=== PATIENT | female | born 1985 | race African-American/Black ===

== ENCOUNTER 2016-12-28 11:18 | Emergency (ER) | payer OTHER ==
[2016-12-28 11:31] VITALS: BP 120/71; PULSE 69; TEMP 97.9; BMI 29.8
[2016-12-28] MEDS ORDERED: IBUPROFEN 600 MG TABLET (FP) PO ONE ×2 (11:57→12:01)
--- NOTE | 2016-12-28 13:45 | PDOC ---
History of Present Illness - General Stated Complaint: RIGHT ANKLE INJURY Time Seen by Provider: 12/28/16 11:34 History Source: Patient Exam Limitations: No Limitations - History of Present Illness Initial Comments: 12/28/16 13:45 CHIEF COMPLAINT: Ankle pain HISTORY OF PRESENT ILLNESS: This is an otherwise healthy 31 year old female who presents by EMS for evaluation after twisting her right ankle. She has not been able to bear weight. REVIEW OF SYSTEMS: GENERAL/CONSTITUTIONAL: No fever or chills. No weakness. No weight change. MUSCULOSKELETAL: See HPI. SKIN: No rash or easy bruising. NEUROLOGIC: No loss of sensation. HEMATOLOGIC/LYMPHATIC: No anemia, easy bleeding, or history of blood clots. ALLERGIC/IMMUNOLOGIC: No hives or skin allergy. No latex allergy. PHYSICAL EXAM: GENERAL: The patient is awake, alert, and fully oriented, in no acute distress. EXTREMITIES: 2+ DP/PT pulses. Edema and tenderness at lateral malleolus. NEUROLOGICAL: Normal speech. CN II-XII grossly intact. Two-point discrimination intact. PSYCH: Normal mood, normal affect. SKIN: Warm, dry, normal turgor, no rashes or lesions noted. Past History - Past Medical History Allergies/Adverse Reactions: Allergies Allergy/AdvReac Type Severity Reaction Status Date / Time No Known Allergies Allergy Verified 03/11/16 11:08 Home Medications: Ambulatory Orders Ibuprofen [Motrin -] 600 mg PO QID #30 tablet 12/28/16 - Surgical History Abdominal Surgery: Yes (CLOSED FALLOPIAN TUBE) - Reproductive History Cervical CA: No Dysfunctional Uterine Bleeding: No Ectopic : No Endometrial CA: No Polycystic Ovaries: No Tubal Ligation: No - Psycho/Social/Smoking Cessation Hx Anxiety: No Suicidal Ideation: No Smoking History: Never smoked Hx Alcohol Use: No Drug/Substance Use Hx: No Substance Use Type: None *Physical Exam - Vital Signs Last Vital Signs Temp Pulse Resp BP Pulse Ox 97.9 F 69 16 120/71 100 12/28/16 11:20 12/28/16 11:20 12/28/16 11:20 12/28/16 11:20 12/28/16 11:20 ED Treatment Course - RADIOLOGY Radiology Studies Ordered: Category Date Time Status ANKLE & FOOT-RIGHT* [RAD] Stat Radiology 12/28/16 11:57 Taken - Medications Given in the ED: ED Medications Discontinued Medications Generic Name Dose Route Start Last Admin Trade Name Cynthia PRN Reason Stop Dose Admin Ibuprofen 600 mg 12/28/16 11:57 12/28/16 12:02 Motrin - PO 12/28/16 11:58 600 mg ONCE ONE Administration Medical Decision Making - Medical Decision Making 02/25/17 12:12 A/P: 31 year old female with ankle injury. -Xray: mild soft tissue swelling at lateral aspect; no fracture -Brace applied, crutches given -Ice, NSAIDS, ortho followup if needed *DC/Admit/Observation/Transfer Diagnosis at time of Disposition: Ankle sprain Qualifiers: Encounter type: initial encounter Laterality: right - Discharge Dispostion Disposition: HOME Condition at time of disposition: Improved Admit: No - Prescriptions Prescriptions: Ibuprofen [Motrin -] 600 mg PO QID #30 tablet - Patient Instructions Printed Discharge Instructions: DI for Ankle Sprain Additional Instructions: -Rest with your foot elevated above the level of your heart -Apply ice to the ankle for 15 minutes at a time 5 times a day -Take ibuprofen as prescribed for pain and swelling -Follow up with orthopedics (referral enclosed) if symptoms persist -Return here for any concerning symptoms - Post Discharge Activity Work/School Note: Back to Work
== END 2016-12-28 14:38 | disposition home or self-care (01) ==
LOC: JERFT 11:18
DX: S93.401A Sprain of unspecified ligament of right ankle, initial encounter (principal); X58.XXXA Exposure to other specified factors, initial encounter; Y93.9 Activity, unspecified; Y92.9 Unspecified place or not applicable
CPT/HCPCS: 73610-TC-RT; 73630-TC-RT; 99281-25

== ENCOUNTER 2017-04-01 20:18 | Emergency (ER) | payer OTHER ==
--- NOTE | 2017-04-01 20:38 | PDOC ---
History of Present Illness - General Chief Complaint: Pain, Acute Stated Complaint: ABDOMINAL PAIN Time Seen by Provider: 04/01/17 20:26 History Source: Patient Exam Limitations: No Limitations - History of Present Illness Travel History: No Initial Comments: 04/01/17 20:46 32-year-old F without any past medical history presents to the emergency department complaining of diffuse abdominal pain. Pain is described as 9/10 frida nonradiating constant discomfort with n/v x2/non bilious/non bloody. There are no alleviating or exacerbating factors. Patient denies fever, chills, chest pain, shortness of breath, flank pains, urinary symptoms: Frequency/urgency/hesitancy, hematuria. LMP: 3 weeks ago. Patient keeps stating it feels like I'm having contractions but I'm not . Timing/Duration: reports: constant Quality: reports: mild Abdominal Pain Onset Location: reports: generalized abdomen Pain Radiation: reports: no radiation Past History - Past Medical History Allergies/Adverse Reactions: Allergies Allergy/AdvReac Type Severity Reaction Status Date / Time No Known Allergies Allergy Verified 04/01/17 20:34 Home Medications: Ambulatory Orders Ibuprofen [Motrin -] 600 mg PO QID #30 tablet 12/28/16 Nitrofurantoin Monohyd/M-Cryst [Macrobid -] 100 mg PO BID #14 capsule 04/02/17 - Surgical History Abdominal Surgery: Yes (CLOSED FALLOPIAN TUBE) - Reproductive History Cervical CA: No Dysfunctional Uterine Bleeding: No Ectopic : No Endometrial CA: No Polycystic Ovaries: No Tubal Ligation: No - Psycho/Social/Smoking Cessation Hx Anxiety: No Suicidal Ideation: No Smoking History: Never smoked Have you smoked in the past 12 months: No Information on smoking cessation initiated: No Hx Alcohol Use: No Drug/Substance Use Hx: No Substance Use Type: None Review of Systems - Review of Systems Able to Perform ROS?: Yes Comments:: 04/01/17 20:49 CONSTITUTIONAL: Absent: fever, chills, diaphoresis, generalized weakness, malaise, loss of appetite HEENT: Absent: rhinorrhea, nasal congestion, throat pain, throat swelling, difficulty swallowing, mouth swelling, ear pain, eye pain, visual Changes CARDIOVASCULAR: Absent: chest pain, loss of consciousness, palpitations, irregular heart rate, peripheral edema RESPIRATORY: Absent: cough, shortness of breath, dyspnea with exertion, orthopnea, wheezing, stridor, hemoptysis GASTROINTESTINAL: +abd pain, +n/v Absent: abdominal distension, diarrhea, constipation, melena, hematochezia GENITOURINARY: Absent: dysuria, frequency, urgency, hesitancy, hematuria, flank pain, genital pain MUSCULOSKELETAL: Absent: myalgia, arthralgia, joint swelling SKIN: Absent: rash, itching, pallor HEMATOLOGIC/IMMUNOLOGIC: Absent: easy bleeding, easy bruising, lymphadenopathy, frequent infections ENDOCRINE: Absent: unexplained weight gain, unexplained weight loss, heat intolerance, cold intolerance NEUROLOGIC: Absent: headache, focal weakness or paresthesias, dizziness, unsteady gait, seizure, mental status changes, bladder or bowel incontinence PSYCHIATRIC: Absent: anxiety, depression, suicidal or homicidal ideation, hallucinations. Is the patient limited Palestinian proficient: No *Physical Exam - Vital Signs Last Vital Signs Temp Pulse Resp BP Pulse Ox 98.9 F 68 20 103/67 100 04/01/17 20:34 04/01/17 20:34 04/01/17 20:34 04/01/17 20:34 04/01/17 20:34 - Physical Exam Comments: 04/01/17 20:49 GENERAL: Well developed, well nourished. Awake and alert. No acute distress. HEENT: Normocephalic, atraumatic. PERRLA, EOMI. No conjunctival pallor. Sclera are non- icteric. Moist mucous membranes. Oropharynx is clear. NECK: Supple. Full ROM. No JVD. Carotid pulses 2+ and symmetric, without bruits. No thyromegaly. No lymphadenopathy. CARDIOVASCULAR: Regular rate and rhythm. No murmurs, rubs, or gallops. Distal pulses are 2+ and symmetric. PULMONARY: No evidence of respiratory distress. Lungs clear to auscultation bilaterally. No wheezing, rales or rhonchi. ABDOMINAL: +DIFFUSE ABD PAIN Soft. Non-distended. No rebound or guarding. No organomegaly. Normoactive bowel sounds. MUSCULOSKELETAL Normal range of motion at all joints. No bony deformities or tenderness. No CVA tenderness. EXTREMITIES: No cyanosis. No clubbing. No edema. No calf tenderness. SKIN: Warm and dry. Normal capillary refill. No rashes. No jaundice. NEUROLOGICAL: Alert, awake, appropriate. Cranial nerves 2-12 intact. No deficits to light touch and temperature in face, upper extremities and lower extremities. No motor deficits in the in face, upper extremities and lower extremities. Normoreflexic in the upper and lower extremities. Normal speech. Toes are down- going bilaterally. Gait is normal without ataxia. PSYCHIATRIC: Cooperative. Good eye contact. Appropriate mood and affect. ED Treatment Course - LABORATORY CBC & Chemistry Diagram: 04/01/17 20:30 04/01/17 20:30 - RADIOLOGY Radiograph Interpretation: 04/02/17 04:26 FINDINGS: Right upper quadrant ultrasound:The liver is normal, without mass or biliary duct dilation. Pericholecystic fluid is noted without wall thickening stones or sludge. No information was provided regarding the presence or absence of a sonographic Melton's sign. The CBD is not dilated and measures6 millimeters in diameter. Right kidney measures 9.6centimeters in length and is unremarkable. The visualized aorta and IVC are normal. Pancreas is partially obscured, but appears normal. Abdominal duplex: The main portal vein demonstrates normal hepatopedal flow. IMPRESSION: Pericholecystic fluid without definite secondary signs of cholecystitis. Please note that is unclear if there was a` sonographic Melton sign. Progress Note - Progress Note Progress Note: FINDINGS: Lung bases are clear. The visualized cardiac chambers are normal size and configuration. Pericholecystic edema is noted which may indicate cholecystitis, although the gallbladder is not significantly distended. Mild biliary duct dilation is noted. There is focal fatty infiltration of the liver next to the falciform ligament. Normal pancreas, spleen, adrenal glands and kidneys. The stomach and abdominal small and large bowel are normal. There is no aortic aneurysm. There is no significant retroperitoneal lymphadenopathy. The pelvic small and large bowel are normal. The appendix is normal. The uterus and adnexal structures are normal. Urinary bladder is unremarkable. There is trace pelvic free fluid. No discrete pelvic lymphadenopathy is identified. IMPRESSION: Possible cholecystitis may be further evaluated with ultrasound. FINDINGS: Right upper quadrant ultrasound:The liver is normal, without mass or biliary duct dilation. Pericholecystic fluid is noted without wall thickening stones or sludge. No information was provided regarding the presence or absence of a sonographic Melton's sign. The CBD is not dilated and measures6 millimeters in diameter. Right kidney measures 9.6centimeters in length and is unremarkable. The visualized aorta and IVC are normal. Pancreas is partially obscured, but appears normal. Abdominal duplex: The main portal vein demonstrates normal hepatopedal flow. IMPRESSION: Pericholecystic fluid without definite secondary signs of cholecystitis. Please note that is unclear if there was a` sonographic Melton sign. 0335hrs: Pt advised to be admitted for surgical consult. Pt adamantly refuses to stay. She states she needs to go to work. Pt advised to return to the ER for severe/persistent/worsening symptoms. *DC/Admit/Observation/Transfer Diagnosis at time of Disposition: Cholecystitis Urinary tract infection Qualifiers: Urinary tract infection type: acute cystitis Hematuria presence: without hematuria Qualified Code(s): N30.00 - Acute cystitis without hematuria - Discharge Dispostion Disposition: HOME Condition at time of disposition: Stable Admit: No - Prescriptions Prescriptions: Nitrofurantoin Monohyd/M-Cryst [Macrobid -] 100 mg PO BID #14 capsule - Referrals Referrals: Maddie Woods MD [Primary Care Provider] - Jose Manuel Lam MD [Staff Physician] - Fer Vann MD [Staff Physician] - - Patient Instructions Printed Discharge Instructions: DI for Cholecystitis, Urinary Tract Infection Additional Instructions: Follow up with the Surgeon on your discharge Follow up with Urologist Return to the ER for severe/persistent/worsening symptoms You were strongly advised to be admitted to the hospital for your stomach pains due to your gallbladder that you adamantly refused to stay. As discussed, return to the emergency department if the pain does not subside or worsen. It is important that you follow up with the general surgeon listed on your discharge form.
[2017-04-01] MEDS ORDERED: SODIUM CHLORIDE 1,000 ML IV STA (20:45)
[2017-04-01 21:16] LABS: BASOPHIL 0.2 % (0-2.0); EOSINOPHIL 0.3 % (0-4.5); MCHC 32.6 g/dl (32.0-36.0); MEAN CELL VOLUME 85.9 fl (80-96); MEAN PLT VOLUME 8.5 fl (7.5-11.1); NEUTROPHILS 95.6 % (42.8-82.8); PLATELET COUNT 161 K/MM3 (134-434); WHITE BLOOD COUNT 6.1 K/mm3 (4.0-10.0)
[2017-04-01 21:17] VITALS: BP 103/67; PULSE 68; TEMP 98.9; BMI 26.7
[2017-04-01 21:32] LABS: URINE APPEARANCE SLCLOUDY; URINE BILIRUBIN NEGATIVE (NEGATIVE); URINE BLOOD 1+ (NEGATIVE); URINE COLOR YELLOW; URINE GLUCOSE (UA) NEGATIVE (NEGATIVE); URINE KETONE TRACE (NEGATIVE); URINE LEUK ESTERASE 2+ (NEGATIVE); URINE NITRITE NEGATIVE (NEGATIVE); URINE PROTEIN 1+ (NEGATIVE); URINE UROBILINOGEN 4.0 E.U/dl mg/dL (0.2-1.0)
[2017-04-01 21:36] LABS: URINE MUCUS MANY; URINE RBC 5 /hpf (0-3); URINE WBC 47 /hpf (3-5)
[2017-04-01 21:47] LABS: ALBUMIN 3.8 g/dl (3.4-5.0); AMYLASE 60 U/L (25-115); ANION GAP 5 (8-16); BILIRUBIN,TOTAL 0.7 mg/dL (0.2-1.0); CALCIUM 8.7 mg/dL (8.5-10.1); CO2 28 mmol/L (21-32); CREATININE 0.8 mg/dL (0.55-1.02); GLUCOSE,RANDOM 105 mg/dL (74-106); SGPT/ALT 211 U/L (12-78); TOT PROT 6.8 g/dl (6.4-8.2)
[2017-04-01 21:48] LABS: ALK PHOS 105 U/L (45-117)
[2017-04-01 21:52] LABS: SGOT/AST 412 U/L (15-37)
[2017-04-01] MEDS ORDERED: morphine CARPU-JECT 2 MG/1 ML DISP.SYRIN IVPUSH ONE (22:59)
[2017-04-01] MEDS ORDERED: morphine CARPU-JECT 2 MG/1 ML DISP.SYRIN ONE (23:29)
[2017-04-02] MEDS ORDERED: LORAZEPAM CARPU-JECT 2 MG/ML DISP.SYRIN IVPUSH ONE
[2017-04-02] MEDS ORDERED: LORAZEPAM CARPU-JECT 2 MG/ML DISP.SYRIN ONE (00:01)
[2017-04-02] MEDS ORDERED: ONDANSETRON 4 MG/2 ML VIAL IVPB ONE (02:22)
[2017-04-02] MEDS ORDERED: ONDANSETRON 4 MG/2 ML VIAL ONE (02:26)
== END 2017-04-02 04:45 | disposition left against medical advice (07) ==
LOC: JER 20:18
PROC: 3E0337Z Introduction of Electrolytic and Water Balance Substance into Peripheral Vein, Percutaneous Approach (ICD-10-PCS; principal; 2017-04-01)
PROC: 3E033NZ Introduction of Analgesics, Hypnotics, Sedatives into Peripheral Vein, Percutaneous Approach (ICD-10-PCS; 2017-04-01)
PROC: 3E033NZ Introduction of Analgesics, Hypnotics, Sedatives into Peripheral Vein, Percutaneous Approach (ICD-10-PCS; 2017-04-01)
PROC: 3E033GC Introduction of Other Therapeutic Substance into Peripheral Vein, Percutaneous Approach (ICD-10-PCS; 2017-04-01)
DX: K81.9 Cholecystitis, unspecified (principal); N30.00 Acute cystitis without hematuria
CPT/HCPCS: 36415; 74177-TC; 76705-TC; 80053; 81003; 81015; 82150; 83690; 84703; 85025; 96361; 96374; 96375; 99284-25

== ENCOUNTER 2017-04-04 18:20 | Inpatient (IN) | payer OTHER ==
[2017-04-04 18:35] VITALS: BMI 27.4
[2017-04-04] MEDS ORDERED: ASPIRIN 81 MG CHEWABLE TABLETS ONE (18:44)
[2017-04-04] MEDS ORDERED: ASPIRIN 81 MG CHEWABLE TABLETS PO ONE (18:45)
[2017-04-04] MEDS ORDERED: SODIUM CHLORIDE 1,000 ML IV STA (18:45)
[2017-04-04] MEDS ORDERED: morphine CARPU-JECT 4 MG/1 ML DISP.SYRIN IVPUSH ONE ×2 (18:45→20:11)
[2017-04-04] MEDS ORDERED: morphine CARPU-JECT 4 MG/1 ML DISP.SYRIN ONE ×2 (18:59→20:22)
[2017-04-04 19:06] LABS: BASOPHIL 2.1 % (0-2.0); EOSINOPHIL 1.8 % (0-4.5); MCHC 32.3 g/dl (32.0-36.0); MEAN CELL VOLUME 86.7 fl (80-96); NEUTROPHILS 51.3 % (42.8-82.8); PLATELET COUNT 170 K/MM3 (134-434); RDW 13.4 % (11.6-15.6); WHITE BLOOD COUNT 5.6 K/mm3 (4.0-10.0)
[2017-04-04 19:20] LABS: INR 1.1 (0.82-1.09); PROTHROMBIN TIME (PATIENT) 12.1 SEC (9.98-11.88)
[2017-04-04 19:23] LABS: ACTIVATED PTT 32.9 SECONDS (26.9-34.4)
[2017-04-04 19:30] LABS: CREATININE 0.7 mg/dL (0.55-1.02); GLUCOSE,RANDOM 92 mg/dL (74-106)
[2017-04-04 19:31] LABS: ALBUMIN 3.7 g/dl (3.4-5.0); ALK PHOS 125 U/L (45-117); ANION GAP 7 (8-16); BILIRUBIN,TOTAL 0.2 mg/dL (0.2-1.0); CALCIUM 9.4 mg/dL (8.5-10.1); CO2 26 mmol/L (21-32); MAGNESIUM 1.9 mg/dL (1.8-2.4); SGOT/AST 42 U/L (15-37); SGPT/ALT 238 U/L (12-78); TOT PROT 7.1 g/dl (6.4-8.2); TROPONIN I < 0.02 ng/ml (0.00-0.05)
--- NOTE | 2017-04-04 20:15 | PDOC ---
History of Present Illness - General Chief Complaint: Pain Stated Complaint: ABDOMINAL APIN Time Seen by Provider: 04/04/17 18:44 History Source: Patient, EMS Exam Limitations: No Limitations - History of Present Illness Initial Comments: 32 yo female with h/o endometriosis with laparoscopy and tissue removal, BIBA for RUQ pain since Tuesday which is now radiating to her right shoulder and left chest. The pain feels like very bad gas and like a pressure, is not exacerbated or alleviated by any factors, and is 10/10 on arrival to the ED. She was seen here in the [facility] ED on Tuesday for RUQ pain and dizziness which caused her to collapse before coming to the ED that day. She had a CT scan of the abdomen, a US abdomen, and blood and urine studies. She was diagnosed with acute cholecystitis and UTI and prescribed Macrobid, which she has not been taking. She was advised to be admitted to the hospital for surgical consultation, but she refused admission. Tonight she notes nausea, vomiting, diarrhea, shortness of breath, and continued dizziness. She is on her menstrual period which has been normal. She denies painful urination or other urinary symptoms, vaginal discharge, fever, chills, or other symptoms. She has never had pain like this before. Her last PO intake was 4 pm today. Past History - Past Medical History Allergies/Adverse Reactions: Allergies Allergy/AdvReac Type Severity Reaction Status Date / Time No Known Allergies Allergy Verified 04/04/17 18:31 Home Medications: Ambulatory Orders Ibuprofen [Motrin -] 600 mg PO QID #30 tablet 12/28/16 Nitrofurantoin Monohyd/M-Cryst [Macrobid -] 100 mg PO BID #14 capsule 04/02/17 Other medical history: denies - Surgical History Abdominal Surgery: Yes (tubal ) - Reproductive History Cervical CA: No Dysfunctional Uterine Bleeding: No Ectopic : No Endometrial CA: No Polycystic Ovaries: No Tubal Ligation: No - Psycho/Social/Smoking Cessation Hx Anxiety: No Suicidal Ideation: No Smoking History: Never smoked Have you smoked in the past 12 months: No Information on smoking cessation initiated: No Hx Alcohol Use: No Drug/Substance Use Hx: No Substance Use Type: None Review of Systems - Review of Systems Able to Perform ROS?: Yes Constitutional: No: Chills, Fever, Unexplained wgt Loss HEENTM: No: Nose Congestion, Throat Pain Respiratory: Yes: Shortness of Breath. No: Cough Cardiac (ROS): Yes: Chest Pain, Lightheadedness. No: Syncope ABD/GI: Yes: Diarrhea, Nausea, Vomiting. No: Constipated : No: Burning, Dysuria Musculoskeletal: No: Back Pain, Neck Pain Integumentary: No: Bruising, Rash Neurological: Yes: Dizziness. No: Headache, Numbness, Tingling, Weakness Endocrine: No: Unexplained Weight Gain, Unexplained Weight Loss *Physical Exam - Vital Signs Last Vital Signs Temp Pulse Resp BP Pulse Ox 98.1 F 44 L 18 145/86 100 04/04/17 18:31 04/04/17 18:31 04/04/17 18:31 04/04/17 18:31 04/04/17 18:31 - Physical Exam General Appearance: Yes: Nourished, Moderate Distress HEENT: positive: EOMI, Normal Voice, Hearing Grossly Normal. negative: Pale Conjunctivae, Scleral Icterus (R), Scleral Icterus (L), Nasal Congestion Neck: positive: Trachea midline, Supple. negative: Tender, Rigid Respiratory/Chest: positive: Lungs Clear, Normal Breath Sounds. negative: Respiratory Distress, Crackles, Rhonchi, Stridor, Wheezing Cardiovascular: positive: Regular Rhythm, Bradycardia (to mid-30s at times). negative: Murmur Gastrointestinal/Abdominal: positive: Normal Bowel Sounds, Tender (RUQ moderate tenderness to palpation with positive Melton's sign, no peritoneal signs), Soft. negative: Organomegaly, Pulsatile Mass, Guarding Musculoskeletal: positive: Normal Inspection, CVA Tenderness (R). negative: Decreased Range of Motion, Vertebral Tenderness Extremity: positive: Normal Capillary Refill, Normal Inspection, Normal Range of Motion. negative: Tender, Cyanosis Integumentary: positive: Normal Color, Dry, Warm. negative: Erythema, Rash, Bruising Neurologic: positive: appraiser art II-XII NML intact, Fully Oriented, Alert, Normal Mood/ Affect, Normal Response, Motor Strength 5/5 Heart Score/ECG Review #1 ECG reviewed & interpreted by me at: 19:00 Sinus bradycardia, rate of 37, with new incomplete RBBB and t-wave inversions anteriorly. ED Treatment Course - LABORATORY CBC & Chemistry Diagram: 04/04/17 18:53 04/04/17 18:53 - ADDITIONAL ORDERS Additional order review: Laboratory Results 04/04/17 04/04/17 18:53 18:53 Sodium 142 Potassium 3.7 Chloride 109 H Carbon Dioxide 26 Anion Gap 7 L BUN 11 D Creatinine 0.7 Creat Clearance w eGFR > 60 Random Glucose 92 Calcium 9.4 Magnesium 1.9 Total Bilirubin 0.2 D AST 42 H D ALT 238 H Alkaline Phosphatase 125 H Creatine Kinase 146 Troponin I < 0.02 Total Protein 7.1 Albumin 3.7 Lipase 80 Serum , Qual Negative 04/04/17 18:53 RBC 4.27 MCV 86.7 MCHC 32.3 RDW 13.4 MPV 9.0 Neutrophils % 51.3 D Lymphocytes % 36.1 D Monocytes % 8.7 D Eosinophils % 1.8 D Basophils % 2.1 H D - RADIOLOGY Radiology Studies Ordered: Category Date Time Status CHEST X-RAY PORTABLE* [RAD] Stat Radiology 04/04/17 18:46 Taken ABDOMEN US -LIMITED [US] Stat Ultrasound 04/04/17 19:37 Ordered 04/04/17 22:53 CXR without consolidation or e/o pneumothorax, pneumoperitoneum, or acute cardiopulmonary processes - Medications Given in the ED: ED Medications Discontinued Medications Generic Name Dose Route Start Last Admin Trade Name Freq PRN Reason Stop Dose Admin Aspirin 162 mg 04/04/17 18:45 04/04/17 19:04 Asa - PO 04/04/17 18:46 162 mg ONCE ONE Administration Sodium Chloride 1,000 mls @ 1,000 mls/hr 04/04/17 18:45 04/04/17 19:04 Normal Saline - IV 04/04/17 19:44 1,000 mls/hr ASDIR STA Administration Morphine Sulfate 4 mg 04/04/17 18:45 04/04/17 19:04 Morphine Injection - IVPUSH 04/04/17 18:46 4 mg ONCE ONE Administration Medical Decision Making - Medical Decision Making 32 yo female with h/o endometriosis with laparoscopy last year who p/w RUQ and left chest pain. Found in sinus bradycardia rate of 37 with t-wave inversions anteriorly, incomplete RBBB, no prior EKG. Seen 3 days ago for RUQ pain and dx with cholecystitis via US and CT abdomen. Also had UTI on UA on Tuesday, not taking Macrobid as she was prescribed. Ddx includes acute cholecystitis, cholangitis, ACS, PNA, pneumothorax, ruptured ovarian cyst, dysmenorrhea. No leukocytosis today, AST has normalized since Tuesday, lipase is wnl. However ALT and Alkaline Phosphatase are elevated. US today shows pericholecystic fluid without biliary ductal dilatation. On the monitor, the patient remains with HR in the upper 30s/lower 40s. She remains hemodynamically stable. Dr. Tyson graciously admits the patient to Inpatient Telemetry. Amylase, blood culture, lactate, Zosyn are ordered. Consults ordered for GI, Surgery, ID, and Cardiology. *DC/Admit/Observation/Transfer Diagnosis at time of Disposition: Bradycardia on ECG, Acute cholecystitis - Discharge Dispostion Condition at time of disposition: Guarded Admit: Yes - Attestations Physician Attestion: 04/04/17 22:36 I, Dr. Keely Ny, attest that this document has been prepared under my direction and personally reviewed by me in its entirety. I further attest, that it accurately reflects all work, treatment, procedures and medical decision -making performed by me.
[2017-04-04] MEDS ORDERED: PIPERACILLIN/TAZOB 4.5 GM/100 ML PRE-DOCKED IVPB ONE (22:44)
[2017-04-04 23:34] LABS: URINE APPEARANCE CLEAR; URINE BILIRUBIN NEGATIVE (NEGATIVE); URINE BLOOD 3+ (NEGATIVE); URINE COLOR YELLOW; URINE GLUCOSE (UA) NEGATIVE (NEGATIVE); URINE KETONE NEGATIVE (NEGATIVE); URINE LEUK ESTERASE NEGATIVE (NEGATIVE); URINE NITRITE NEGATIVE (NEGATIVE); URINE UROBILINOGEN NEGATIVE mg/dL (0.2-1.0)
[2017-04-04 23:41] LABS: URINE PROTEIN 1+ (NEGATIVE)
[2017-04-04] MEDS ORDERED: PIPERACILLIN/TAZOB 4.5 GM 100 ML IVPB ONE (23:51)
[2017-04-05 00:19] LABS: URINE MUCUS MANY; URINE RBC 717 /hpf (0-3); URINE WBC 5 /hpf (3-5)
[2017-04-05] MEDS: SODIUM CHLORIDE 1,000 ML IV SCH (01:50)
[2017-04-05] MEDS: HYDROmorphone HCL CARPU-JECT 1 MG/1 ML DISP.SYRIN IVPB PRN ×2 (01:58→21:49)
--- NOTE | 2017-04-05 10:07 | CON.CARD ---
Consult Consult Specialty:: Cardiology Referred by:: Dr. Tyson Reason for Consultation:: Cardiac evaluation - History of Present Illness Chief Complaint: Syncope History of Present Illness: Patient is a 32 year old female with no underlying PMH who presents to [facility] after nausea, vomiting, diarrhea and a syncopal episode yesterday. She is post 5 months and apparently presented to ER on last Tuesday with right quadrant abdominal pain. Cholecystitis was suspected and work up was planned, however; she signed out AMA until she presented back to ER yesterday. She continued to have right upper quadrant pain in addition to the above GI complaints. She was bottle feeding her baby when she became dizzy and briefly passed out. She denies any prior episode of syncope. She denies shortness of breath or palpitations. She denies chest pain, but complains also of back pain. She denies paroxysmal nocturnal dyspnea or orthopnea. She denies fever or chills. She denies headache. ECG and monitor reveals marked sinus bradycardia in the 30's and states that her HR is always slow. Cardiology consultation was called for further evaluation. - History Source History Provided By: Patient, Medical Record Limitations to Obtaining History: No Limitations - Past Medical History Reproductive: Yes: Endometriosis ...LMP: 12/15/14 - Past Surgical History Additional Surgical History: Surgery for endometriosis - Alcohol/Substance Use Hx Alcohol Use: Yes (Social) History of Substance Use: reports: None - Smoking History Smoking history: Never smoked Have you smoked in the past 12 months: No Home Medications - Allergies Allergies/Adverse Reactions: Allergies Allergy/AdvReac Type Severity Reaction Status Date / Time No Known Allergies Allergy Verified 04/04/17 18:31 - Home Medications Home Medications: Ambulatory Orders Ibuprofen [Motrin -] 600 mg PO QID #30 tablet 12/28/16 Nitrofurantoin Monohyd/M-Cryst [Macrobid -] 100 mg PO BID #14 capsule 04/02/17 Review of Systems - Review of Systems Constitutional: denies: Chills, Fever Cardiovascular: denies: Chest Pain, Palpitations, Shortness of Breath Respiratory: denies: Cough, Hemoptysis, Orthopnea, PND, SOB, SOB on Exertion Gastrointestinal: reports: Abdominal Pain, Diarrhea, Nausea, Vomiting. denies: Melena, Rectal Bleeding Musculoskeletal: reports: Back Pain Neurological: denies: Dizziness, Headache, Seizure, Syncope Vital Signs: Vital Signs Temperature 97.8 F 04/05/17 06:00 Pulse Rate 38 L 04/05/17 06:00 Respiratory Rate 18 04/05/17 06:00 Blood Pressure 136/63 04/05/17 06:00 O2 Sat by Pulse Oximetry (%) 99 04/05/17 01:40 HENT: Yes: Atraumatic Neck: Yes: Supple Respiratory: Yes: CTA Bilaterally Gastrointestinal: Yes: Normal Bowel Sounds, Soft, Tenderness (Diffuse) Cardiovascular: Yes: Regular Rate and Rhythm, Bradycardia JVD: No Carotid Bruit: No PMI: Non-Displaced Heart Sounds: Yes: S1, S2 Edema: No Neurological: Yes: WNL - Other Data Labs, Other Data: INR, PTT INR 1.10 (0.82-1.09) 04/04/17 18:53 Laboratory Results - last 24 hr 04/04/17 04/04/17 04/04/17 18:53 18:53 18:53 WBC 5.6 RBC 4.27 Hgb 12.0 Hct 37.0 MCV 86.7 MCH 28.0 MCHC 32.3 RDW 13.4 Plt Count 170 MPV 9.0 Neutrophils % 51.3 D Lymphocytes % 36.1 D Monocytes % 8.7 D Eosinophils % 1.8 D Basophils % 2.1 H D INR 1.10 PTT (Actin FS) 32.9 Sodium Potassium Chloride Carbon Dioxide Anion Gap BUN Creatinine Creat Clearance w eGFR Random Glucose Calcium Magnesium Total Bilirubin AST ALT Alkaline Phosphatase Creatine Kinase Troponin I Total Protein Albumin Total Amylase Lipase Serum , Qual Negative Urine Color Yellow Urine Appearance Clear Urine pH 5.0 Ur Specific [place] >= 1.030 H Urine Protein 1+ H Urine Glucose (UA) Negative Urine Ketones Negative Urine Blood 3+ H Urine Nitrite Negative Urine Bilirubin Negative Urine Urobilinogen Negative Ur Leukocyte Esterase Negative Urine RBC 717 Urine WBC 5 Ur Epithelial Cells Rare Urine Mucus Many 04/04/17 04/04/17 18:53 22:40 WBC RBC Hgb Hct MCV MCH MCHC RDW Plt Count MPV Neutrophils % Lymphocytes % Monocytes % Eosinophils % Basophils % INR PTT (Actin FS) Sodium 142 Potassium 3.7 Chloride 109 H Carbon Dioxide 26 Anion Gap 7 L BUN 11 D Creatinine 0.7 Creat Clearance w eGFR > 60 Random Glucose 92 Calcium 9.4 Magnesium 1.9 Total Bilirubin 0.2 D AST 42 H D ALT 238 H Alkaline Phosphatase 125 H Creatine Kinase 146 Troponin I < 0.02 Total Protein 7.1 Albumin 3.7 Total Amylase 52 Lipase 80 Serum , Qual Urine Color Urine Appearance Urine pH Ur Specific [place] Urine Protein Urine Glucose (UA) Urine Ketones Urine Blood Urine Nitrite Urine Bilirubin Urine Urobilinogen Ur Leukocyte Esterase Urine RBC Urine WBC Ur Epithelial Cells Urine Mucus Marked sinus bradycardia otherwise no ST-T abnormality Echo: Pending Imaging - Results Chest X-ray: Report Reviewed (Unremarkable) X-ray: Report Reviewed (Abdominal US - Trace pericholecystic fluid and no clear signs of acute cholecystitis) EKG: Report Reviewed Problem List - Problems (1) Acute cholecystitis Code(s): K81.0 - ACUTE CHOLECYSTITIS (2) Bradycardia on ECG Code(s): R00.1 - BRADYCARDIA, UNSPECIFIED (3) Syncope Code(s): R55 - SYNCOPE AND COLLAPSE Qualifiers: Syncope type: unspecified Qualified Code(s): R55 - Syncope and collapse Assessment/Plan 1. Right upper quadrant pain with abnormal liver function suggests gallbladder disease rule out cholecystitis 2. Syncope, etiology to be determined, possible vagal event with vomiting and diarrhea, rule out cardiac etiology with slow HR, sinus node disease 3. Marked sinus bradycardia PLAN: 1. Continue monitor on telemetry 2. Transthoracic echocardiography to assess LV and valvular function (official result to follow) 3. Consider Holter monitor 4. Patient is not on any AV jennifer agent at this time and would avoid them 5. GI evaluation to follow. Further plans are to follow Freddie Jarrett MD
[2017-04-05] MEDS ORDERED: ALPRAZolam 0.25 MG TABLET PO ONE (11:00)
--- NOTE | 2017-04-05 14:01 | EKG ---
Test Reason : Blood Pressure : / mmHG Vent. Rate : 030 BPM Atrial Rate : 030 BPM P-R Int : 160 ms QRS Dur : 092 ms QT Int : 524 ms P-R-T Axes : 023 054 042 degrees QTc Int : 370 ms MARKED SINUS BRADYCARDIA RSR' IN V1-V2 NONSPECIFIC T WAVE ABNORMALITY ABNORMAL ECG WHEN COMPARED WITH ECG OF 04-APR-2017 18:33, CORRELATE CLINICALLY AND REPEAT INDICATED Confirmed by IMAN TEJADA MD ([id number]) on 04/05/2017 2:00:50 PM Referred By: Chiquita QUINN Confirmed By:IMAN TEJADA MD
[2017-04-05] MEDS ORDERED: ONDANSETRON 4 MG/2 ML VIAL ONE (15:23)
[2017-04-05] MEDS ORDERED: PANTOPRAZOLE SODIUM 40 MG/100 ML PRE-DOCKED IVPB SCH (15:30)
[2017-04-05] MEDS: MAG HYDROX/AL HYDROX/SIMETH 30 ML UNIT-DOSE CUP PO PRN ×2 (15:36→21:30)
[2017-04-05] MEDS: ONDANSETRON 4 MG/2 ML VIAL IVPB SCH ×2 (15:36→19:57)
[2017-04-05] MEDS: DEXTROSE 5%-NORMAL SALINE 1,000 ML IV SCH (15:36)
--- NOTE | 2017-04-05 16:05 | CONSULT ---
Consult Consult Specialty:: infectious diseases Reason for Consultation:: abd pain,uti,choleycystitis - History of Present Illness Chief Complaint: abd pain weakness History of Present Illness: 32 yo female with h/o endometriosis admitted for RUQ pain which started since Tuesday and radiating to her right shoulder and left chest. pressure, is not She was seen here in the [facility] ED on Tuesday for RUQ pain and dizziness which caused her to collapse before coming to the ED that day. She had a CT scan of the abdomen, a US abdomen, and blood and urine studies. She was diagnosed with acute cholecystitis and UTI and prescribed Macrobid, which she has not been taking. patient refused admission at that time and went home She did not improve and started having. es nausea, vomiting, diarrhea, shortness of breath, and continued dizziness. she also mentions that she is having her period and she thinks she is having her period - History Source History Provided By: Patient Limitations to Obtaining History: No Limitations - Past Medical History ...LMP: 12/15/14 - Past Surgical History Additional Surgical History: Surgery for endometriosis - Alcohol/Substance Use Hx Alcohol Use: Yes (Social) History of Substance Use: reports: None - Smoking History Smoking history: Never smoked Have you smoked in the past 12 months: No Home Medications - Allergies Allergies/Adverse Reactions: Allergies Allergy/AdvReac Type Severity Reaction Status Date / Time No Known Allergies Allergy Verified 04/04/17 18:31 - Home Medications Home Medications: Ambulatory Orders Ibuprofen [Motrin -] 600 mg PO QID #30 tablet 12/28/16 Nitrofurantoin Monohyd/M-Cryst [Macrobid -] 100 mg PO BID #14 capsule 04/02/17 Review of Systems - Review of Systems Constitutional: reports: No Symptoms Eyes: reports: No Symptoms HENT: reports: No Symptoms Neck: reports: No Symptoms Cardiovascular: reports: No Symptoms Respiratory: reports: No Symptoms Gastrointestinal: reports: Abdominal Pain, Nausea, Vomiting Genitourinary: reports: Urgency Musculoskeletal: reports: No Symptoms Integumentary: reports: No Symptoms Neurological: reports: No Symptoms Endocrine: reports: No Symptoms Hematology/Lymphatic: reports: No Symptoms Psychiatric: reports: No Symptoms Physical Exam Vital Signs: Vital Signs Temperature 98.7 F 04/05/17 14:00 Pulse Rate 40 L 04/05/17 14:00 Respiratory Rate 20 04/05/17 14:00 Blood Pressure 152/84 04/05/17 14:00 O2 Sat by Pulse Oximetry (%) 100 04/05/17 08:00 Constitutional: Yes: Well Nourished, No Distress, Calm Eyes: Yes: WNL, Conjunctiva Clear HENT: Yes: Atraumatic Neck: Yes: Supple, Trachea Midline Cardiovascular: Yes: Regular Rate and Rhythm Respiratory: Yes: Regular, CTA Bilaterally Gastrointestinal: Yes: Normal Bowel Sounds, Tenderness (ruq) Musculoskeletal: Yes: WNL Extremities: Yes: WNL Neurological: Yes: Alert, Oriented Psychiatric: Yes: Alert, Oriented Imaging - Results Chest X-ray: Report Reviewed, Image Reviewed Ultrasound: Report Reviewed, Image Reviewed Other: Image Reviewed Assessment/Plan patient with multiple medical problems suspicion of ac lefty patient just had a hida scan all the results are pending patien has pain in ruq but everything is bothering her ac choleycystitis abd pain nausea uti plan will start patient on abx continue monitoring rest as per primary
[2017-04-05] MEDS: PIPERACILLIN/TAZOB 3.375 GM 50 ML IVPB SCH (17:13)
--- NOTE | 2017-04-05 17:50 | HP ---
Admitting History and Physical - Primary Care Physician PCP: Amy Tyson - Admission History of Present Illness: - 32 year old female with no underlying PMH who presents to [facility] after nausea, vomiting, diarrhea and a syncopal episode yesterday. She is post 5 months and apparently presented to ER on last Tuesday with right quadrant abdominal pain, ua revealed mild infection, dc on po abx . Cholecystitis was suspected and work up was planned, however; she signed out AMA until she presented back to ER yesterday. She continued to have right upper quadrant pain in addition to the above GI complaints. She was bottle feeding her baby when she became dizzy and briefly passed out. She denies shortness of breath or palpitations. She denies chest pain.ECG and monitor reveals marked sinus bradycardia in the 30's and states that her heart rate is always low. currently she is feeling well and wants to go home - Past Medical History ...LMP: 12/15/14 - Smoking History Smoking history: Never smoked Have you smoked in the past 12 months: No - Alcohol/Substance Use Hx Alcohol Use: Yes (Social) History of Substance Use: reports: None Home Medications - Allergies Allergies/Adverse Reactions: Allergies Allergy/AdvReac Type Severity Reaction Status Date / Time No Known Allergies Allergy Verified 04/04/17 18:31 - Home Medications Home Medications: Ambulatory Orders Ibuprofen [Motrin -] 600 mg PO QID #30 tablet 12/28/16 Nitrofurantoin Monohyd/M-Cryst [Macrobid -] 100 mg PO BID #14 capsule 04/02/17 Physical Examination Vital Signs: Vital Signs Temperature 98.7 F 04/05/17 14:00 Pulse Rate 40 L 04/05/17 14:00 Respiratory Rate 20 04/05/17 14:00 Blood Pressure 152/84 04/05/17 14:00 O2 Sat by Pulse Oximetry (%) 100 04/05/17 08:00 Constitutional: Yes: Anxious HENT: Yes: Atraumatic Neck: Yes: Supple Cardiovascular: Yes: Regular Rate and Rhythm Respiratory: Yes: CTA Bilaterally Gastrointestinal: Yes: Normal Bowel Sounds Extremities: Yes: WNL Neurological: Yes: Alert, Oriented Problem List - Problems (1) Acute cholecystitis Assessment/Plan: gb scan ....no acute cholecystitis d/w dr villa she can eat Code(s): K81.0 - ACUTE CHOLECYSTITIS (2) Bradycardia on ECG Assessment/Plan: on holter d/w dr quick cardiology she can go home and follow up with him at his office Code(s): R00.1 - BRADYCARDIA, UNSPECIFIED Assessment/Plan Laboratory Tests 04/04/17 04/04/17 04/04/17 18:53 18:53 18:53 WBC 5.6 RBC 4.27 Hgb 12.0 Hct 37.0 MCV 86.7 MCH 28.0 MCHC 32.3 RDW 13.4 Plt Count 170 MPV 9.0 Neutrophils % 51.3 D Lymphocytes % 36.1 D Monocytes % 8.7 D Eosinophils % 1.8 D Basophils % 2.1 H D INR 1.10 PTT (Actin FS) 32.9 Sodium Potassium Chloride Carbon Dioxide Anion Gap BUN Creatinine Creat Clearance w eGFR Random Glucose Calcium Magnesium Total Bilirubin AST ALT Alkaline Phosphatase Creatine Kinase Troponin I Total Protein Albumin Total Amylase Lipase Serum , Qual Negative Urine Color Yellow Urine Appearance Clear Urine pH 5.0 Ur Specific [place] >= 1.030 H Urine Protein 1+ H Urine Glucose (UA) Negative Urine Ketones Negative Urine Blood 3+ H Urine Nitrite Negative Urine Bilirubin Negative Urine Urobilinogen Negative Ur Leukocyte Esterase Negative Urine RBC 717 Urine WBC 5 Ur Epithelial Cells Rare Urine Mucus Many 04/04/17 04/04/17 18:53 22:40 WBC RBC Hgb Hct MCV MCH MCHC RDW Plt Count MPV Neutrophils % Lymphocytes % Monocytes % Eosinophils % Basophils % INR PTT (Actin FS) Sodium 142 Potassium 3.7 Chloride 109 H Carbon Dioxide 26 Anion Gap 7 L BUN 11 D Creatinine 0.7 Creat Clearance w eGFR > 60 Random Glucose 92 Calcium 9.4 Magnesium 1.9 Total Bilirubin 0.2 D AST 42 H D ALT 238 H Alkaline Phosphatase 125 H Creatine Kinase 146 Troponin I < 0.02 Total Protein 7.1 Albumin 3.7 Total Amylase 52 Lipase 80 Serum , Qual Urine Color Urine Appearance Urine pH Ur Specific [place] Urine Protein Urine Glucose (UA) Urine Ketones Urine Blood Urine Nitrite Urine Bilirubin Urine Urobilinogen Ur Leukocyte Esterase Urine RBC Urine WBC Ur Epithelial Cells Urine Mucus Active Medications Generic Name Dose Route Start Last Admin Trade Name Freq PRN Reason Stop Dose Admin Al Hydroxide/Mg Hydroxide 30 ml 04/05/17 15:25 04/05/17 15:36 Mylanta Oral Suspension - PO 30 ml Q4H PRN Administration INDIGESTION Hydromorphone HCl 1 mg 04/05/17 01:07 04/05/17 01:58 Dilaudid Injection - IVPB 1 mg Q3H PRN Administration PAIN Sodium Chloride 1,000 mls @ 100 mls/hr 04/05/17 01:00 04/05/17 01:50 Normal Saline - IV 100 mls/hr ASDIR SIMON Administration Dextrose/Sodium Chloride 1,000 mls @ 150 mls/hr 04/05/17 15:30 04/05/17 15:36 D5-Ns - IV 04/07/17 22:09 150 mls/hr ASDIR SIMON Administration Piperacillin Sod/Tazobactam Sod 50 mls @ 100 mls/hr 04/05/17 18:00 04/05/17 17: 13 Zosyn 3.375gm Ivpb (Pre-Docked) IVPB 100 mls/hr Q8H-IV SIMON Administration Protocol Ondansetron HCl 4 mg 04/05/17 15:30 04/05/17 15:36 Zofran Injection IVPB 04/06/17 03:31 4 mg Q4H SIMON Administration Ondansetron HCl 4 mg 04/06/17 03:00 Zofran Injection IVPB Q4H PRN NAUSEA AND/OR VOMITING Pantoprazole Sodium 40 mg 04/05/17 15:30 04/05/17 15:35 Protonix 40mg Ivpb (Pre-Docked) IVPB 40 mg BID SIMON Administration
--- NOTE | 2017-04-05 19:16 | DS ---
Physical Examination Vital Signs: Vital Signs Temperature 98.7 F 04/05/17 14:00 Pulse Rate 40 L 04/05/17 14:00 Respiratory Rate 20 04/05/17 14:00 Blood Pressure 152/84 04/05/17 14:00 O2 Sat by Pulse Oximetry (%) 100 04/05/17 08:00 Discharge Summary Reason For Visit: UTI,BRADYCARDIA ON ECG Current Active Problems Acute cholecystitis (Acute) Bradycardia on ECG (Acute) Syncope (Acute) Condition: Guarded - Instructions Referrals: Freddie Quick MD [Staff Physician] - - Home Medications Comprehensive Discharge Medication List: Ambulatory Orders Ibuprofen [Motrin -] 600 mg PO QID #30 tablet 12/28/16 Nitrofurantoin Monohyd/M-Cryst [Macrobid -] 100 mg PO BID #14 capsule 04/02/17 ar home d/w cardiology fu dr quick 1 week
--- NOTE | 2017-04-05 19:34 | PN ---
Progress Note (short form) - Note Progress Note: surgery pt seen and exmained. full consult dictated. 32f with severe ruq pain and syncope Tuesday that returned to [facility] ER Tuesday with similar symptoms. u/s x 2 shows not gallstones but fluid around gb. Pt has known endometriosis and numerous ER visits for abd pain. HIDA and CCK HIDA requested by me showing normal gb function. Lfts mildly elevated Tuesday and today. Plan- GB is not source of symptoms. No indication for cholecystectomy. Should consider GI w/u.
--- NOTE | 2017-04-05 20:13 | CON.GI ---
Consult Consult Specialty:: gastroenterology Referred by:: Dr Tyson - History of Present Illness History of Present Illness: 32 y/o female has endometriosis, lower abdominal pain wa admitted to r/o cholecystitis. This evening she complains of abdominal bloating, diarrhea, diffuse abdominal pain. SHe was admitted in telemetry because of bradycardia. - Past Medical History ...LMP: 12/15/14 - Past Surgical History Additional Surgical History: Surgery for endometriosis - Alcohol/Substance Use Hx Alcohol Use: Yes (Social) History of Substance Use: reports: None - Smoking History Smoking history: Never smoked Have you smoked in the past 12 months: No Home Medications - Allergies Allergies/Adverse Reactions: Allergies Allergy/AdvReac Type Severity Reaction Status Date / Time No Known Allergies Allergy Verified 04/04/17 18:31 - Home Medications Home Medications: Ambulatory Orders Ibuprofen [Motrin -] 600 mg PO QID #30 tablet 12/28/16 Nitrofurantoin Monohyd/M-Cryst [Macrobid -] 100 mg PO BID #14 capsule 04/02/17 Physical Exam-GI Vital Signs: Vital Signs Temperature 98.7 F 04/05/17 14:00 Pulse Rate 40 L 04/05/17 14:00 Respiratory Rate 20 04/05/17 14:00 Blood Pressure 152/84 04/05/17 14:00 O2 Sat by Pulse Oximetry (%) 100 04/05/17 08:00 Constitutional: Yes: Well Nourished Eyes: Yes: Conjunctiva Clear HENT: Yes: Atraumatic Neck: Yes: Supple Cardiovascular: Yes: Regular Rate and Rhythm Respiratory: Yes: CTA Bilaterally Gastrointestinal Inspection: Yes: Distention ...Palpate: Yes: Soft. No: Firm/Rigid, Guarding, Hepatomegaly, Mass, Pulsatile Mass, Splenomegaly, Tenderness ...Percussion: Yes: Tympanitic Labs: INR, PTT INR 1.10 (0.82-1.09) 04/04/17 18:53 Problem List - Problems (1) GERD (gastroesophageal reflux disease) Assessment/Plan: R> Continue Protonix and Reglan urine toxicity Code(s): K21.9 - GASTRO-ESOPHAGEAL REFLUX DISEASE WITHOUT ESOPHAGITIS (2) IBS (irritable bowel syndrome) Assessment/Plan: suspect bacterial overgrowth R> low residue lactose free diet Flagyl 250mg tid made aware to ff-up for further w/u Code(s): K58.9 - IRRITABLE BOWEL SYNDROME WITHOUT DIARRHEA
[2017-04-05] MEDS ORDERED: PANTOPRAZOLE 40 MG TABLET (FP) PO SCH (20:15)
--- NOTE | 2017-04-05 20:33 | EKG ---
Test Reason : Blood Pressure : / mmHG Vent. Rate : 037 BPM Atrial Rate : 037 BPM P-R Int : 160 ms QRS Dur : 098 ms QT Int : 460 ms P-R-T Axes : 011 051 016 degrees QTc Int : 361 ms MARKED SINUS BRADYCARDIA ATRIAL ABNORMALITY RSR' V1-V2 ABNORMAL ECG NO PREVIOUS ECGS AVAILABLE REPEAT EKG IF CLINICALLY INDICATED Confirmed by IMAN TEJADA MD ([id number]) on 04/05/2017 8:33:10 PM Referred By: Confirmed By:IMAN TEJADA MD
[2017-04-05] MEDS: METOCLOPRAMIDE HCL 10 MG TABLET (FP) PO SCH (20:34)
[2017-04-05] MEDS: metroNIDAZOLE 250 MG TABLET PO SCH (21:31)
[2017-04-06] MEDS: DEXTROSE 5%-NORMAL SALINE 1,000 ML IV SCH (01:00)
[2017-04-06] MEDS: PIPERACILLIN/TAZOB 3.375 GM 50 ML IVPB SCH ×2 (01:01→09:19)
[2017-04-06] MEDS: SODIUM CHLORIDE 1,000 ML IV SCH (01:10)
[2017-04-06] MEDS ORDERED: ONDANSETRON 4 MG/2 ML VIAL IVPB PRN (03:00)
[2017-04-06] MEDS: HYDROmorphone HCL CARPU-JECT 1 MG/1 ML DISP.SYRIN IVPB PRN (04:02)
[2017-04-06] MEDS: ONDANSETRON 4 MG/2 ML VIAL IVPB SCH ×2 (04:27)
[2017-04-06] MEDS: METOCLOPRAMIDE HCL 10 MG TABLET (FP) PO SCH ×2 (06:27→10:27)
[2017-04-06] MEDS: metroNIDAZOLE 250 MG TABLET PO SCH (06:27)
[2017-04-06 07:55] VITALS: BP 145/66; PULSE 54; TEMP 98.1
--- NOTE | 2017-04-06 08:01 | CONS ---
DATE OF CONSULTATION: 04/05/2017 REASON FOR CONSULTATION: Rule out gallbladder disease, acute cholecystitis. This is a medical consultation at the request of Dr. Amy Tyson. This is done as an inpatient consultation. BRIEF HISTORY: This is a 32-year-old female with known endometriosis who has had a laparoscopy and tissue removal for that. She has also had numerous emergency room visits for abdominal pain including 6 at [facility]. She presented here on Tuesday with severe right upper quadrant abdominal pain and claiming that she passed out. She was noted to have an elevated AST of 412, ALT 211, and alkaline phosphatase of 105, and she was diagnosed with a urinary tract infection and given Macrobid and discharged. Ultrasound at that time showed no gallstones, and she had a small amount of fluid located around the gallbladder. The patient had a resumption of her symptoms yesterday and again came to [facility] Emergency Room. She had another ultrasound, which again showed no gallstones but did show a small amount of fluid around the gallbladder. She was admitted to the hospital for possible acute cholecystitis. At my request, she had a HIDA scan, which showed filling of the gallbladder in 1 hour, and she had a CCK HIDA, which showed a 44% ejection fraction confirming a normally functioning gallbladder. Her liver function tests were again elevated. Her AST was down to 42. Her ALT was approximately the same at 238, and her alkaline phosphatase was approximately the same at 125. She states that currently she has no nausea or vomiting but she did before as well as diarrhea. She states that she always has this when her endometriosis attacks during her menstruation. She is currently menstruating. PAST MEDICAL HISTORY: As stated in HPI. PAST SURGICAL HISTORY: As stated in HPI. SOCIAL HISTORY: Positive for occasional alcohol consumption. ALLERGIES: She has no known drug allergies. HOME MEDICATIONS: Include ibuprofen and Macrobid, which she did not take. FAMILY HISTORY: Noncontributory. REVIEW OF SYSTEMS: General: Denies fatigue or malaise. Cardiac: Denies chest pain or palpitations. Respiratory: Denies shortness of breath or wheeze. Gastrointestinal: As in HPI. Genitourinary: Denies dysuria. Musculoskeletal: Denies joint pain and joint swelling. Psychiatric: Denies anxiety, depression, or hearing voices. PHYSICAL EXAMINATION: General: This is a well-developed, well-nourished 32-year-old female in no distress. Vital Signs: She is afebrile. Her vital signs are stable. She is noted to have a low heart rate of 40, but she is asymptomatic, and that is being managed per the medical service. HEENT: His head is normocephalic. Sclerae anicteric. Neck: Supple. Chest: Clear. Abdomen: Soft, nontender. She has well healed laparoscopic scars. Extremities: No edema. LABORATORY: As stated in HPI. IMAGING: As stated in HPI. In addition, she had a CAT scan of her abdomen and pelvis, which showed a contracted gallbladder with fluid around it. Again, no stones noted. ASSESSMENT: A 32-year-old female with multiple emergency room visits for abdominal pain with known endometriosis with a gallbladder that shows no stones on 2 ultrasounds as well as a CAT scan and a totally normal HIDA scan. Clinically her gallbladder is not the source of her symptoms. She does have elevated liver function tests, and it is unclear the etiology of these. They were elevated on Tuesday as well. At this point, there is no surgical indication for cholecystectomy. She should consider a GI workup. DO BAYLEE LOERA/[id number]
[2017-04-06] MEDS ORDERED: PANTOPRAZOLE 40 MG TABLET (FP) PO SCH (10:00)
[2017-04-06] MEDS: MAG HYDROX/AL HYDROX/SIMETH 30 ML UNIT-DOSE CUP PO PRN (10:27)
[2017-04-06 12:08] LABS: URINE MARIJUANA THC POSITIVE ng/ml (CUTOFF=50)
--- NOTE | 2017-04-06 12:15 | PN ---
Progress Note, Physician - Current Medication List Current Medications: Active Medications Al Hydroxide/Mg Hydroxide (Mylanta Oral Suspension -) 30 ml PO Q4H PRN PRN Reason: INDIGESTION Last Admin: 04/06/17 10:27 Dose: 30 ml Hydromorphone HCl (Dilaudid Injection -) 1 mg IVPB Q3H PRN PRN Reason: PAIN Last Admin: 04/06/17 04:02 Dose: 1 mg Sodium Chloride (Normal Saline -) 1,000 mls @ 100 mls/hr IV ASDIR SIMON Last Admin: 04/06/17 01:10 Dose: Not Given Dextrose/Sodium Chloride (D5-Ns -) 1,000 mls @ 150 mls/hr IV ASDIR SIMON Stop: 04/07/17 22:09 Last Admin: 04/06/17 01:00 Dose: 150 mls/hr Piperacillin Sod/Tazobactam Sod (Zosyn 3.375gm Ivpb (Pre-Docked)) 50 mls @ 100 mls/hr IVPB Q8H-IV SIMON PRN Reason: Protocol Last Admin: 04/06/17 09:19 Dose: 100 mls/hr Metoclopramide HCl (Reglan -) 5 mg PO TIDAC [facility] Last Admin: 04/06/17 10:27 Dose: 5 mg Metronidazole (Flagyl -) 250 mg PO TID [facility] Last Admin: 04/06/17 06:27 Dose: 250 mg Ondansetron HCl (Zofran Injection) 4 mg IVPB Q4H PRN PRN Reason: NAUSEA AND/OR VOMITING Pantoprazole Sodium (Protonix -) 40 mg PO DAILY [facility] Last Admin: 04/06/17 09:19 Dose: 40 mg - Objective Vital Signs: Vital Signs Temperature 98.1 F 04/06/17 07:54 Pulse Rate 54 L 04/06/17 07:54 Respiratory Rate 18 04/06/17 07:54 Blood Pressure 145/66 04/06/17 07:54 O2 Sat by Pulse Oximetry (%) 100 04/05/17 21:00 Labs: INR, PTT INR 1.10 (0.82-1.09) 04/04/17 18:53 Assessment/Plan 04/05/2017 Echo: Normal LV size and fxn, mod-severe MR 1. Right upper quadrant pain with abnormal liver function suggests gallbladder disease rule out cholecystitis 2. Syncope, etiology to be determined, possible vagal event with vomiting and diarrhea, rule out cardiac etiology with slow HR, sinus node disease 3. Marked sinus bradycardia PLAN: 1. Continue monitor on telemetry 2. Transthoracic echocardiography to assess LV and valvular function (official result to follow) 3. Consider Holter monitor 4. Patient is not on any AV jennifer agent at this time and would avoid them 5. GI evaluation to follow.
--- NOTE | 2017-04-06 16:37 | HOL ---
Hook-up date: 2017-04-05 14:08:00 Duration: 22:28:00 Test Indications: SINUS BRADYCARDIA Medications: 27039 QRS complexes 1 Ventricular ectopics which represent <1 % of total QRS comp. 311 Supraventricular ectopics which represent <1 % of total QRS comp. * Paced QRS complexs which represent % of total QRS comp. 6 % of Time Classified as Noise VENTRICULAR ECTOPY 1 Isolated 0 Bigeminal Cycles 0 Couplets 0 Runs 0 Beats in Runs * Beats LONGEST at * BPM at :: -- * Beats FASTEST at * BPM at :: -- SUPRAVENTRICULAR ECTOPY 276 Isolated 17 Couplets 0 Runs 0 Beats in Runs * Beats LONGEST at * BPM at :: -- * Beats FASTEST at * BPM at :: -- HEART RATES 27 MIN at 15:44:33 2017-04-05 51 AVG 98 MAX at 03:01:32 2017-04-06 LONGEST RR 2.792 secs at 19:07:44 2017-04-05 SCANNED BY CAMELIA HARLEY 04/06/2017 Marked sinus bradycardia average hr 51 max hr 98 minimum hr 27 longest RR interval 2.8 sec. occasional VPCs and APC's no st t wave changes Confirmed by FRACISCO LINDSEY MD ([id number]) on 04/06/2017 4:36:32 PM Referred By: Overread By: FRACISCO LINDSEY MD
== END 2017-04-06 13:11 | disposition home or self-care (01) ==
LOC: JER 18:20 → JERBED 22:36 → J4W 04-05 01:25
PROVIDERS: ADMIT Internal Medicine; ATTEND Internal Medicine
DX: K81.0 Acute cholecystitis (principal); K21.9 Gastro-esophageal reflux disease without esophagitis; K58.9 Irritable bowel syndrome, unspecified; R00.1 Bradycardia, unspecified; N80.9 Endometriosis, unspecified; R55 Syncope and collapse; N39.0 Urinary tract infection, site not specified
CPT/HCPCS: 36415; 71010-TC; 76705-TC; 78227-TC; 80053; 80307; 81003; 81015; 82150; 82550; 83690; 83735; 84484; 84703; 85025; 85610; 85730; 87040; 87086; 93005; 93010; 93225; 93226; 93306-TC; 99285-25; A9537